=== PATIENT | male | born 2000 | race Caucasian/White ===

== ENCOUNTER 2024-12-15 11:14 | Outpatient (CLI) | payer BC, SELFPAY | END 2024-12-15 11:15 | disposition home or self-care (01) | PROVIDERS: Visit Provider Family Medicine | DX: Z01.818 Encounter for other preprocedural examination (principal); R00.0 Tachycardia, unspecified; R53.83 Other fatigue; S72.91XA Unspecified fracture of right femur, initial encounter for closed fracture; S72.92XA Unspecified fracture of left femur, initial encounter for closed fracture | CPT/HCPCS: 80048; 82306; 83970; 84439; 84443; 84480 ==

== ENCOUNTER 2025-03-07 08:27 | Inpatient (IN) | payer BC, SELFPAY ==
--- OUTSIDE RECORDS SUMMARY | 2025-02-03 05:22 | XMS_ITS | Encounter Summary ---
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 (after last reorder) on Sat02/04/25 at 1400, Until Discontinued methocarbamoL (ROBAXIN) tablet 500 mg 500 mg, oral, FOUR TIMES A DAY, First dose on Sat02/04/25 at 1200, Until Discontinued 1203 (Given - Provid er: Sarah Arango RN) tranexamic acid (CYKLOKAPRON) 710 mg in sodium chloride 0.9 % 100 mL IV infusion (COMPLETED) 710 mg (rounded from 712 mg = 10 mg/kg 71.2 kg), Intravenous, EVERY 3 HOURS (NS), 2 doses, First dose on Sat02/03/25 at 1115, Last dose on Sat02/03/25 at 1415, Administer over 10 Minutes 1110 (New Bag - Provider: María Elena Ruby APRN, LINE CAMERA OPERATOR)1403 (Bolus from Existing Bag - Provider: María Elena Ruby APRN, DOT)1415 (Due) Continuous Medication Order 02/02/2025 02/03/2025 02/04/2025 lactated Ringers (LR) IV infusion (CANCELED) at 100 mL/hr, Intravenous, CONTINUOUS, Starting on Sat02/03/25 at 1515, Until Sat02/03/25 at 1649, Phase 12 1515 (Rate Verify - Provider : Paulie Figueredo RN) PRN Medication Order 02/02/2025 02/03/2025 02/04/2025 bisacodyl (DULCOLAX) suppository 1 suppository 1 suppository, Rectal, DAILY NEEDED, Starting on Sat02/03/25 at 1656, Until Radha 02/04/25 at 1847, Post-Op, for constipation if patient unable to take oral laxative D50W IV syringe 25-50 mL 25-50 mL, Intravenous, NEEDED, Starting on Sat02/03/25 at 1755, Until Radha 02/04/25 at 1847, hypoglycemia fentaNYL (SUBLIMAZE) injection 25-50 mcg (CANCELED) 25-50 mcg, Intravenous, EVERY 5 MINUTES NEEDED, 8 doses, Starting on Sat02/03/25 at 1512, Until Sat02/03/25 at 1649, Phase 12, ACUTE SURGICAL PAIN 1516 (Given - Provider: Paulie Figueredo RN)1600 (Given - Provider: Paulie Figueredo RN) glucagon, human recombinant (Glucagen) injection (conc: 1 mg/mL) 1 mg 1 mg, IntraMUSCULAR, EVERY 15 MINUTES NEEDED, 2 doses, Starting on Sat02/03/25 at 1755, Until Radha 02/04/25 at 1847, for hypoglycemia HYDROmorphone (Dilaudid) syringe 0.2-0.4 mg 0.2-0.4 mg, Intravenous, EVERY 4 HOURS NEEDED, Starting on Sat02/03/25 at 1656, Until Radha 02/04/25 at 1847, Post-Op, Pain, when NOT taking PO hydrOXYzine pamoate (Vistaril) capsule 25 mg 25 mg, oral, EVERY 6 HOURS NEEDED, Starting on Radha 9/18/25 at 0906, Until Sat02/04/25 at 1847, Pain med adjunct, anxiety, sleep 1018 (Given - Provid er: Sarah Arango RN) Insulin pump - correctional Subcutaneous, NEEDED, Starting on Sat02/04/25 at 0924, Until Sat02/04/25 at 1847, as needed for correction lidocaine 1% injection (conc: 10 mg/mL) 0.1-0.3 mL (CANCELED) 0.1-0.3 mL, Intradermal, NEEDED, Starting on Sat02/03/25 at 0537, Until Sat02/03/25 at 1438, Pre-Op, Local Anesthesia, IV start or restart 0621 (Given - Provider: Dasha Scott RN) naloxone (NARCAN) injection 0.1 mg 0.1 mg, Intravenous, EVERY 1 MINUTE PRN, Starting on Sat02/03/25 at 1656, Until Sat02/04/25 at 1847, Post-Op, Opiate Reversal ondansetron (Zofran) injection 4 mg 4 mg, Intravenous, EVERY 8 HOURS NEEDED, Starting on Sat02/03/25 at 1656, Until Sat02/04/25 at 1847, Post-Op, nausea & vomiting, After transfer out of recovery oxyCODONE (immediate release) (ROXICODONE) tablet 2.5-5 mg (CANCELED) 2.5-5 mg, oral, EVERY 4 HOURS NEEDED, Starting on Sat02/03/25 at 1656, Until Sat02/04/25 at 1118, Post-Op, Pain, when taking PO 1720 (Given - Provider: Gian Lacy RN)2122 (Given - Provider: Gian Lacy RN) 0203 (Given - Provider: Layla Viveros RN)0758 (Given - Provider: Angela Tobias RN) oxyCODONE (immediate release) (ROXICODONE) tablet 5-10 mg 5-10 mg, oral, EVERY 4 HOURS NEEDED, Starting on Sat02/04/25 at 1118, Until Sat02/04/25 at 1847, Post-Op, Pain, when taking PO 1203 (Given - Provid er: Sarah Arango RN) senna-docusate (SENNA-S) tablet 1-2 tablet 1-2 tablet, oral, TWICE A DAY NEEDED, Starting on Sat02/03/25 at 1656, Until Radha 02/04/25 at 1847, Post-Op, constipation tobramycin (NEBCIN) powder (OR) (CANCELED) INTRA-PROCEDURE NEEDED, Starting on Sat02/03/25 at 1050, Until Sat02/03/25 at 1438, Intra-Op 1050 (Given - Provider: Jonathan Flannery MD - Comment: sprinkled into surgical site)1414 (Given - Provider: Jonathan Flannery MD - Comment: sprinkled into surgical site) vancomycin (VANCOCIN) powder (OR) (CANCELED) INTRA-PROCEDURE NEEDED, Starting on Sat02/03/25 at 1050, Until Sat02/03/25 at 1438, Intra-Op 1050 (Given - Provider: Jonathan Flannery MD - Comment: sprinkled into surgical site at 10:50 and second bottle at 1400) Linked Groups Order Group 1: acetaminophen (TYLENOL) tablet 1,000 mgJump to med 1,000 mg, oral, FOUR TIMES A DAY, First dose on Sat02/03/25 at 1800, Until Discontinued, Post-Op Or acetaminophen (TYLENOL) rectal suppository 650 mgJump to med 650 mg, Rectal, FOUR TIMES A DAY, First dose on Sat02/03/25 at 1800, Until Discontinued, Post-Op Group 2: POCT Glucose Meter (CANCELED) Routine, 4 TIMES DAILY - BEFORE MEALS & BEDTIME, First occurrence on Sat02/03/25 at 2200, Until Specified, Ensure Accucheck completed 4 times daily, even if patient misses meal(s). And POCT Glucose Meter (CANCELED) Routine, PRN, Starting on Sat02/03/25 at 1806, Until Specified, Two Hours After Coverage of Blood Glucose 350 mg / dL or Greater, 30 Minutes After Blood Glucose Less Than 80 mg / dL; Patient is Not Symptomatic and More Than 30 Minutes Until Next Meal and For Symptoms of Hypoglycemia. And insulin lispro (HumaLOG; Admelog) 100 unit/mL injection - pen 0-5 Units (CANCELED)Jump to med 0-5 Units, Subcutaneous, THREE TIMES A DAY WITH MEALS, First dose on Sat02/03/25 at 1815, Until Discontinued And insulin lispro (HumaLOG; Admelog) 100 unit/mL injection - pen 0-3 Units (CANCELED) 0-3 Units, Subcutaneous, AT BEDTIME, First dose on Sat02/03/25 at 2200, Until Discontinued documented in this encounter Care Teams Telephone Directory Deliverer Relationship Specialty Start Date End Date Foreign Salazar [address] [place] [address] PCP - General 01/29/25 documented as of this encounter
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
[2025-03-07] VITALS (33 sets, daily range): BP systolic 125–154; BP diastolic 86–114; PULSE 87–132; RESP 5–20; TEMP 36.2–37.7; O2SAT 95–100; BMI 19.4; BMI 17.1
--- OUTSIDE RECORDS SUMMARY | 2025-03-07 08:29 | XMS_ITS | Clinical Summary ---
Author Organization [facility] Address [address] [place] [address]. [place] [address] Care Team Providers Care Instrument Fitter Name Role Phone No Ref-Primary, Physician Primary Care Provider Allergies No known active allergies Medications INSULIN PUMP - OUTPATIENT Date Last Updated: 09/16/23 Tandem Type of Insulin: Humalog U-100 BASAL RATES and times: 6429-7645: 1.7 units/hour 8088-5738: 1.8 units/hour 8229-7323: 1.5 units/hour 6040-7694: 1.6 units/hour CARB RATIO (gram/unit) and times: 6040-6841: 8 7855-1009: 12 1890-5999: 8 2646-3130: 5.5 Corection Factor (Sensitivity) and times: 3524-8977: 25 7837-6110: 25 9937-4008: 25 1866-7322: 25 BLOOD GLUCOSE TARGET (mg/dL) and times: 7459-5058: 110 0330-5651: 110 4549-4931: 130 5663-0043: 110 Active Insulin Time: 3 hours CGM Sensor: Yes: Dexcom G7 Pump site change frequency: every 48 to 72 hours Active vitamin D2 (ERGOCALCIFEROL ) 21455 units (1250 mcg) capsule Take 50,000 Units by mouth every 30 days 3 Active HUMALOG 100 UNIT/ML injection Inject Subcutaneous daily For insulin pump 3 Active Continuous Glucose Sensor (DEXCOM G7 SENSOR) MISC every 10 days 4 Active Active Problems Problem Noted Date Diagnosed Date Suicidal ideation 01/18/2023 Depression, unspecified depression type 01/19/20 23 Substance use disorder 01/18/2023 Social History Tobacco Use Types Packs/Day Years Used Date Smoking Tobacco: Never Assessed Adolescent Education Answer Date Record ed Getting School Help Needed Not on file 03/05 Sex and Gender Information Value Date Recorded Sex Assigned at Not on file Legal Sex Male 4:22 AM [employer] Gender Identity Not on file Sexual Orientation Not on file Last Filed Vital Signs Vital Sign Reading Time Taken Comments Blood Pressure 136/74 09/17/2023 10:30 AM CDT Pulse 80 09/17/2023 10:30 AM CDT Temperature 36.9 C (98.4 F) 09/16/2023 1:32 PM CDT Respiratory Rate 18 09/17/2023 10:30 AM CDT Oxygen Saturation 95% 09/17/2023 10:30 AM CDT Inhaled Oxygen Concentration - - Weight 68.6 kg (151 lb 4.8 oz) 01/18/2023 2:22 A M CDT Height 190.5 cm (6' 3) 01/18/2023 2:22 AM CDT Body Mass Index 18.91 01/18/2023 2:22 AM CDT Plan of Treatment Health Maintenance Due Date Last Done Comments ADVANCE CARE PLANNING 2001 ANNUAL REVIEW OF HM ORDERS 2001 YEARLY PREVENTIVE VISIT 2004 HPV VACCINE (2 - Male 2-dose series) 02/07/2014 08/07/2013 HIV SCREENING 2016 MENINGITIS B VACCINE (1 of 2 - Standard) 2017 HEPATITIS C SCREENING 10/27/2019 PHQ-2 (once per calendar year) 2024 COVID-19 VACCINE ( - season) 2025 INFLUENZA VACCINE (#1) 2025 9, 03/13/2004, 04/16/2003 DTAP/TDAP/TD VACCINE (8 - Td or Tdap) 10/18/2031 10/17/2021, 08/07/2013, 10/22/2006, Additional history exists ZOSTER VACCINE (1 of 2) 10/27/2051 HEPATITIS B VACCINE Completed 10/28/2002, 02/23/2002, 2001 PNEUMOCOCCAL VACCINE: PEDIATRICS (0 to 5 YEARS) AND AT-RISK PATIENTS (6 to 49 YEARS) Aged Out 01/25/2003, 04/09/2002, 02/23/2002, Additional history exists No longer eligible based on patient's age to complete this topic MENINGITIS VACCINE Aged Out 08/07/2013 No longer eligible based on patient's age to complete this topic Insurance BCBS OUT OF STATE BCBS OUT OF STATE [facility] OUT OF STATE Care Teams Instrument Fitter Relationship Specialty Start Date End Date No Ref-Primary, Physician PCP - General 01/18/23
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
--- OUTSIDE RECORDS SUMMARY | 2025-03-07 08:30 | XMS_ITS | Encounter Summary ---
Author Organization [facility] Address [address] [place] [address] Care Team Providers Care Guest Service Manager Name Role Phone Foreign Salazar Primary Care Provider [phone] Encounter Details Date Type Department Care Team (Latest Contact Info) Description 02/03/2025 Travel Social History Tobacco Use Types Packs/Day Years [...] any time in the past 12 m [facility], were you homeless or living in a snf (including now)? Patient unable to answer 11/12/2024 [...] any time in the past 12 m [facility], were you homeless or living in a snf (including now)? No 02/03/2025 [facility] Utilities Answer Date Recorded In the past 12 months has th e electric, gas, oil, or water company threatened to shut off services in your home? No 02/03/2025 Sex and Gender Information Value Date Recorded Sex Assigned at Not on file Legal Sex Male 4:41 PM CDT Gender Identity Not on file Sexual Orientation Not on file documented as of this encounter Plan of Treatment Not on file documented as of this encounter Visit Diagnoses Not on filedocumented in this encounter Care Teams Guest Service Manager Relationship Specialty Start Date End Date Foreign Salazar: [phone] [address] [place] [address] PCP - General 01/29/25 documented as of this encounter
--- OUTSIDE RECORDS SUMMARY | 2025-03-07 08:30 | XMS_ITS | Encounter Summary ---
Author Organization [facility] Address [address] [place] [id number] Care Team Providers Care Bulk Clerk Name Role Phone Foreign Salazar Primary Care Provider [phone] Encounter Details Date Type Department Care Team (Latest Contact Info) Description 02/01/2025 Travel Social History Tobacco Use Types Packs/Day Years Used Date Smoking Tobacco: Every Day Cigarettes E - Cigarettes Smokeless Tobacco: Never Alcohol Use Standard Drinks/Week Comments Yes 0 (1 standard drink = 0.6 oz pur e alcohol) occasionally drinks [facility] Utilities Answer Date Recorded In the past 12 months has e [employer], gas, oil, or water [employer] threatened to shut off services in your home? Patient unable to answer 11/12/2024 Humiliation, Afraid, Rape, a nd Kick questionnaire Answer Date Recorded Within the last year, have y ou been afraid of your partner or ex-partner? Patient unable to answer 11/12/2024 Within the last year, have y ou been humiliated or emotionally abused in other ways by your partner or ex-partner? Patient unable to answer 11/12/2024 Within the last year, have y ou been kicked, hit, slapped, or otherwise physically hurt by your partner or ex-partner? Patient unable to answer 11/12/2024 Within the last year, have y ou been raped or forced to have any kind of sexual activity by your partner or ex-partner? Patient unable to answer 11/12/2024 Hunger Vital Sign Answer Date Recorded Within the past 12 months, y ou worried that your food would run out before you got the money to buy more. Patient unable to answer 11/12/2024 Within the past 12 months, t he food you bought just didn't last and you didn't have money to get more. Patient unable to answer 11/12/2024 PRAPARE - Transportation Answer Date Re corded In the past 12 months, has l ack of transportation kept you from medical appointments or from getting medications? Patient unable to answer 11/12/2024 In the past 12 months, has l ack of transportation kept you from meetings, work, or from getting things needed for daily living? Patient unable to answer 11/12/2024 Housing Stability Vital Sign Answer Yobany e Recorded In the last 12 months, was t here a time when you were not able to pay the mortgage or rent on time? Patient unable to answer 11/12/2024 Number of Times Moved in the Last Year Not on fi le 11/12/2024 At any time in the past 12 m [facility], were you homeless or living in a retirement (including now)? Patient unable to answer 11/12/2024 Sex and Gender Information Value Date Recorded Sex Assigned at Not on file Legal Sex Male 4:41 PM CDT Gender Identity Not on file Sexual Orientation Not on file documented as of this encounter Plan of Treatment Not on file documented as of this encounter Visit Diagnoses Not on filedocumented in this encounter Care Teams Bulk Clerk Relationship Specialty Start Date End Date Foreign Salazar [address] [place] [address] PCP - General 01/29/25 documented as of this encounter
--- NOTE | 2025-03-07 09:30 | CRLHL7_ITS ---
For Patients: As a result of the Century Cures Act, medical imaging exams and procedure reports are released immediately into your electronic medical record. You may view this report before your referring provider. If you have questions, please contact your health care provider. INDICATION: Vomiting COMPARISON: None. TECHNIQUE: 1 view chest radiograph. FINDINGS: Devices: Lung volumes are good. No focal or diffuse opacities. No pulmonary edema. No pleural effusion. No pneumothorax. No pneumomediastinum. Heart size is normal. Bones: No acute findings. IMPRESSION: Normal chest radiograph. Dictated by Anai Patel MD @ 03/07/2025 10:04:01 AM (Electronically Signed)
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
[2025-03-07 09:41] LABS: Lactate* 3.0 mmol/L (0.5-1.9)
[2025-03-07 09:43] LABS: Hematocrit* 50.6 % (37.0-53.0); Hemoglobin* 17.9 gm/dL (13.5-17.5); Immature Granulocytes Pct Auto 0.3 %; Mean Corpuscular HGB Conc 35 gm/dL (32-36); Mean Corpuscular Hemoglobin 29 pg (26-34); Mean Corpuscular Volume 82 fL (80-100); RDW Coefficient of Variation % 12.6 % (11.5-15.5); Red Blood Count* 6.16 m/uL (4.30-5.90); White Blood Count* 24.36 K/uL (4.50-11.00)
[2025-03-07 09:44] LABS: Immature Granulocytes Abs Auto 0.10 K/uL (0.00-0.30); Lymphocytes Absolute Auto 1.30 K/uL (0.90-2.90); Slide Review Reflex Yes
[2025-03-07 09:56] LABS: Chloride* 81 mmol/L (96-114)
[2025-03-07 09:57] LABS: Albumin* 5.8 g/dL (3.3-5.0); Potassium* 3.4 mmol/L (3.6-5.1); Sodium* 132 mmol/L (135-149)
[2025-03-07 09:59] LABS: Blood Urea Nitrogen* 50 mg/dL (5-24); Creatinine* 1.9 mg/dL (0.5-1.5); Est. Creatinine Clearance* 60.13; Estimated Glomerular Filt Rate 50 ml/min
[2025-03-07 10:00] LABS: Alanine Aminotransferase* 18 U/L (4-50); Alkaline Phosphatase* 270 U/L (40-150); Anion Gap 32 mEq/L (7-15); Aspartate Amino Transferase* 31 U/L (12-35); Bilirubin Direct* 0.8 mg/dL (0.0-0.5); Bilirubin Total* 1.6 mg/dL (0.1-1.5); Calcium* 10.1 mg/dL (8.4-10.6); Carbon Dioxide* 19 mmol/L (20-32); Glucose* 331 mg/dL (60-115); Total Protein* 10.7 g/dL (6.0-8.3)
[2025-03-07 10:02] LABS: Ethanol* < 0.01 % (0.01-0.03)
[2025-03-07] MEDS: MEROPENEM 1 GM in 0.9 % SODIUM CHLORIDE Mini-bag 100 ML IVPB ×2 (10:14→18:35)
[2025-03-07] MEDS: PANTOPRAZOLE SODIUM 40 MG INJ IVP ×2 (10:14→21:58)
[2025-03-07 10:15] LABS: NT Pro B Type NatriureticPept* 212 pg/mL (See Note)
[2025-03-07 10:21] LABS: Slide Review Acceptable Review (Acceptable)
[2025-03-07 10:46] LABS: Procalcitonin* 0.78 ng/mL (<0.50)
--- NOTE | 2025-03-07 10:51 | CRLHL7_ITS ---
For Patients: As a result of the Cures Act, medical imaging exams and procedure reports are released immediately into your electronic medical record. You may view this report before your referring provider. If you have questions, please contact your health care provider. INDICATION: Pulmonary embolism suspected, sepsis. TECHNIQUE: CT chest PE was acquired with 95 cc Isovue 370 IV contrast. COMPARISON: None. FINDINGS: Heart and vasculature: Contrast opacification of the pulmonary arterial tree is adequate. No sign of pulmonary embolism. Heart size is normal. Thoracic aorta and pulmonary artery are normal in caliber. Lungs and pleura: No focal consolidation. No pleural effusions, pleural thickening, or pneumothorax. Lymph nodes/mediastinum: No mediastinal, hilar, or axillary adenopathy. Chest wall: No masses. Upper abdomen: Refer to same-day CT abdomen pelvis with contrast. Bones: No acute osseous abnormality. Subacute to chronic appearing rib fractures on of the left 8th through 10th ribs. IMPRESSION: No pulmonary embolus. Chronic appearing fractures of the left 8th through 10th ribs. Please note that all CT scans at this facility use dose modulation, iterative reconstruction, and/or weight-based dosing when appropriate to reduce radiation dose to as low as reasonably achievable. Dictated by Zain Bello MD @ 03/07/2025 12:46:50 PM (Electronically Signed)
--- NOTE | 2025-03-07 10:51 | CRLHL7_ITS ---
For Patients: As a result of the Century Cures Act, medical imaging exams and procedure reports are released immediately into your electronic medical record. You may view this report before your referring provider. If you have questions, please contact your health care provider. INDICATION: Sepsis. TECHNIQUE: Axial intravenously infused CT cuts were performed from above diaphragm to the ischial tuberosities with the infusion of 95 mL of Isovue 370. COMPARISON: None. FINDINGS: The lower most visualized portion of the esophagus appears somewhat thickened raising the possibility of esophagitis. A few of the upper abdominal images are degraded by motion artifact. The liver, spleen, pancreas, adrenals and kidneys appear normal. There is no free intraperitoneal air or fluid. The colon small bowel appear normal. The appendix is not inflamed. There are no enlarged retroperitoneal or mesenteric lymph nodes. The urinary bladder is very full with the dome of the bladder extending to the level of the L5 vertebra. The prostate gland seminal vesicles appear normal. There is no iliac or inguinal lymphadenopathy. There are incompletely visualized intramedullary rods within both proximal femora. There are no lytic or sclerotic skeletal lesions. There are no nodules or masses the lung bases. IMPRESSION: 1. The lower end of the esophagus appears thickened raising possibility esophagitis. 2. The urinary bladder is very full with the dome of the urinary bladder extending to the level of the L5 vertebra. 3. Hardware within both proximal femora. Please note that all CT scans at this facility use dose modulation, iterative reconstruction, and/or weight-based dosing when appropriate to reduce radiation dose to as low as reasonably achievable. Dictated by Hao Watson MD @ 03/07/2025 12:17:54 PM (Electronically Signed)
[2025-03-07 11:37] LABS: Lactate* 1.8 mmol/L (0.5-1.9)
[2025-03-07] MEDS: 0.9 % SODIUM CHLORIDE 500 ML 500 ML IV (12:52)
[2025-03-07 12:53] LABS: Appearance Urine Clear (Clear)
[2025-03-07] MEDS: ONDANSETRON 2 MG/ML inj 4 MG IVP ×2 (13:00→16:59)
[2025-03-07 13:03] LABS: Cannabinoid Screen Urine POSITIVE (Negative); Methamphetamines Screen Urine Negative (Negative); Tricyclic Antidepressant Urine Negative (Negative)
[2025-03-07 13:05] LABS: Other Sediment Urine HYALINE CASTS
[2025-03-07 13:28] LABS: PCR FLU A Negative PCR FLU A (Negative); PCR FLU B Negative PCR FLU B (Negative); PCR RSV Negative PCR RSV (Negative); SARS PCR* Negative SARS-CoV-2 (Negative)
[2025-03-07] MEDS: LACTATED RINGERS 1000 ML 1,000 ML IV (15:17)
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
[2025-03-07] MEDS: 5 % DEX/0.9 SOD CHL+KCL 20 mEq 1,000 ML 500 ML IV (16:55)
[2025-03-07] MEDS: GABAPENTIN 300 MG CAPSULE PO (16:56)
[2025-03-07] MEDS: [UNRECOGNIZED DRUG - REMARK] SUBCUT ×3 (17:17→22:05)
[2025-03-07 18:10] LABS: Hematocrit* 39.9 % (37.0-53.0); Hemoglobin* 13.9 gm/dL (13.5-17.5); Immature Granulocytes Pct Auto 1.4 %; Mean Corpuscular HGB Conc 35 gm/dL (32-36); Mean Corpuscular Hemoglobin 29 pg (26-34); Mean Corpuscular Volume 83 fL (80-100); RDW Coefficient of Variation % 12.8 % (11.5-15.5); Red Blood Count* 4.81 m/uL (4.30-5.90); White Blood Count* 21.28 K/uL (4.50-11.00)
[2025-03-07 18:14] LABS: Chloride* 94 mmol/L (96-114); Sodium* 131 mmol/L (135-149)
[2025-03-07 18:15] LABS: Potassium* 3.3 mmol/L (3.6-5.1)
[2025-03-07 18:15] LABS: Lactate* 1.3 mmol/L (0.5-1.9)
[2025-03-07 18:17] LABS: Anion Gap 15 mEq/L (7-15); Blood Urea Nitrogen* 28 mg/dL (5-24); Carbon Dioxide* 22 mmol/L (20-32); Creatinine* 0.9 mg/dL (0.5-1.5); Est. Creatinine Clearance* 112.28; Estimated Glomerular Filt Rate 123 ml/min
[2025-03-07 18:18] LABS: Calcium* 8.5 mg/dL (8.4-10.6); Glucose* 311 mg/dL (60-115)
[2025-03-07 18:30] LABS: Immature Granulocytes Abs Auto 0.30 K/uL (0.00-0.30); Lymphocytes Absolute Auto 1.00 K/uL (0.90-2.90); Slide Review Reflex No
[2025-03-07 19:19] LABS: Strep A DNA Probe* NOT DETECTED (Not Detectd)
--- NOTE | 2025-03-07 19:47 | PC.NURSE ---
Admission-- Pleasant, alert and oriented but very drowsy patient was admitted to Med-Surg from ED via cart. Flat affect. VSS, though mildly hypertensive and tachycardic with HR as high as 130s. Highest temp this shift 99.4 temporal. Pt is flushed and feels warm to touch. SPO2 maintained >94% on RA. He c/o sore pain in his throat and was given ice for comfort. Throat culture pending. LS CTA. Pt nauseas and had approximately 200ml of bilious, brown emesis this shift and hiccups and spits almost continuously. Pt was given Zofran PRN with temporary improvement noted. Pt was able to sip small amounts of ice, water and diet germán ammy. BG 297 per his glucose monitor and pt was given 6 units insulin from his insulin pump per MD order. Scarring noted on pt's left hip, right foot and scattered across other extremities. Parents at bedside this evening and appear loving and supportive. Telemetry shows Sinus tachycardia. Report to KARIN Arnett.
[2025-03-07] MEDS: 5 % DEX/0.9 SOD CHL+KCL 20 mEq 1,000 ML 125 ML IV (20:01)
[2025-03-07] MEDS: SODIUM CHLORIDE 0.9 % (FLUSH) 10 ML SYRINGE 5 ML IVF (20:01)
[2025-03-07] MEDS: PROCHLORPERAZINE 5 MG/ML VIAL IV (20:01)
[2025-03-07 20:51] LABS: Mono Screen* Negative (Negative)
[2025-03-07 21:11] LABS: Glucose* 341 mg/dL (60-115)
[2025-03-07] MEDS: ASPIRIN 81 MG TAB.CHEW PO (21:58)
[2025-03-07] MEDS: POTASSIUM BICARB 25 MEQ EFFERVESCENT TAB PO (22:10)
[2025-03-08] VITALS (10 sets, daily range): BP systolic 132–145; BP diastolic 84–92; PULSE 83–127; RESP 18–20; TEMP 36.3–37.7; O2SAT 96–99
[2025-03-08] MEDS: POTASSIUM BICARB 25 MEQ EFFERVESCENT TAB PO (00:12)
[2025-03-08] MEDS: ACETAMINOPHEN 325 MG TABLET 650 MG PO (00:38)
[2025-03-08] MEDS: [UNRECOGNIZED DRUG - REMARK] SUBCUT ×9 (00:50→21:48)
[2025-03-08] MEDS: MEROPENEM 1 GM in 0.9 % SODIUM CHLORIDE Mini-bag 100 ML IVPB ×3 (02:01→18:08)
[2025-03-08] MEDS: 5 % DEX/0.9 SOD CHL+KCL 20 mEq 1,000 ML 125 ML IV (04:57)
[2025-03-08 05:57] LABS: Lactate* 0.9 mmol/L (0.5-1.9)
[2025-03-08 06:02] LABS: Hematocrit* 37.6 % (37.0-53.0); Hemoglobin* 12.8 gm/dL (13.5-17.5); Immature Granulocytes Pct Auto 0.4 %; Mean Corpuscular HGB Conc 34 gm/dL (32-36); Mean Corpuscular Hemoglobin 29 pg (26-34); Mean Corpuscular Volume 86 fL (80-100); RDW Coefficient of Variation % 13.0 % (11.5-15.5); Red Blood Count* 4.38 m/uL (4.30-5.90); White Blood Count* 13.38 K/uL (4.50-11.00)
[2025-03-08 06:08] LABS: Immature Granulocytes Abs Auto 0.10 K/uL (0.00-0.30); Lymphocytes Absolute Auto 1.20 K/uL (0.90-2.90); Slide Review Reflex No
[2025-03-08 06:20] LABS: Albumin* 3.6 g/dL (3.3-5.0); Chloride* 98 mmol/L (96-114); Potassium* 3.6 mmol/L (3.6-5.1); Sodium* 134 mmol/L (135-149)
[2025-03-08 06:23] LABS: Alanine Aminotransferase* 10 U/L (4-50); Alkaline Phosphatase* 198 U/L (40-150); Anion Gap 11 mEq/L (7-15); Aspartate Amino Transferase* 13 U/L (12-35); Bilirubin Direct* 0.5 mg/dL (0.0-0.5); Bilirubin Total* 1.4 mg/dL (0.1-1.5); Blood Urea Nitrogen* 15 mg/dL (5-24); Calcium* 8.6 mg/dL (8.4-10.6); Carbon Dioxide* 25 mmol/L (20-32); Creatinine* 0.7 mg/dL (0.5-1.5); Est. Creatinine Clearance* 0.00; Estimated Glomerular Filt Rate 133 ml/min; Glucose* 311 mg/dL (60-115); Total Protein* 6.0 g/dL (6.0-8.3)
--- NOTE | 2025-03-08 06:38 | PC.NURSE ---
Shift Note: Pt very nauseous with emesis x2 despite zofran IVP. Pt was given a dose of Compazine and this has been effective. MD discontinued both antiemetics d/t potential for prolonged QT intervals. Nausea should be treated for nausea with PRN haldol. Persistent tachycardia has resolved, pt's HR has been in the 80's for several hours. Mildly elevated temps, highest reading was 100. Pt was given PRN Tylenol for moderate generalized discomfort and throat pain and was not able to keep it down. He was initially quite somnolent and needed tactile stimulation to wake and respond. He has been oriented x3, and alertness has improved. BG was over 400. Serum value drawn and 8 units bolused from pt's pump per sliding scale order. Recheck's Q2H until 0200 per MD. Pt was given 2 additional boluses of 6 units each. Pt's last BG= 271.
[2025-03-08] MEDS: SODIUM CHLORIDE 0.9 % (FLUSH) 10 ML SYRINGE 5 ML IVF ×2 (08:42→21:25)
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
[2025-03-08] MEDS: MAGNESIUM SULF 1 G/100 ML 1 GM/100 ML PIGGYBACK IVPB (09:37)
[2025-03-08] MEDS: 0.9 % SODIUM CH + KCL 20 mEq/L 1,000 ML 125 ML IV (09:37)
[2025-03-08] MEDS: PANTOPRAZOLE SODIUM 40 MG INJ IVP (09:45)
[2025-03-08] MEDS: ASPIRIN 81 MG TAB.CHEW PO ×2 (12:03→21:25)
[2025-03-08 15:26] LABS: Chloride* 98 mmol/L (96-114); Potassium* 4.6 mmol/L (3.6-5.1); Sodium* 132 mmol/L (135-149)
[2025-03-08 15:29] LABS: Anion Gap 18 mEq/L (7-15); Blood Urea Nitrogen* 13 mg/dL (5-24); Calcium* 8.6 mg/dL (8.4-10.6); Carbon Dioxide* 16 mmol/L (20-32); Creatinine* 0.7 mg/dL (0.5-1.5); Est. Creatinine Clearance* 0.00; Estimated Glomerular Filt Rate 133 ml/min
[2025-03-08 15:37] LABS: Glucose* 365 mg/dL (60-115)
[2025-03-08] MEDS: 5 % DEXTROSE IN LAC RINGER'S 1,000 ML 125 ML IV (16:30)
--- NOTE | 2025-03-08 19:31 | PC.NURSE ---
pt pleasant and cooperative with cares. pt reports no pain but reports nausea at beginning of shift, prn medication given per jul. pt had no appetite throughout shift. Oral fluids tolerated. pt remained in bed and slept for most of shift. Rig Mechanic suggest pt dangle feet at edge of bed or sit up, pt refused. Pt sleeping in bed, parents at bedside. pt has no concerns at this time
[2025-03-08 21:34] LABS: Chloride* 97 mmol/L (96-114); Sodium* 133 mmol/L (135-149)
[2025-03-08 21:35] LABS: Potassium* 3.8 mmol/L (3.6-5.1)
[2025-03-08 21:37] LABS: Anion Gap 17 mEq/L (7-15); Blood Urea Nitrogen* 12 mg/dL (5-24); Carbon Dioxide* 19 mmol/L (20-32); Creatinine* 0.7 mg/dL (0.5-1.5); Est. Creatinine Clearance* 0.00; Estimated Glomerular Filt Rate 133 ml/min
[2025-03-08 21:38] LABS: Calcium* 8.8 mg/dL (8.4-10.6); Glucose* 323 mg/dL (60-115)
[2025-03-08] MEDS: INSULIN INF 100 UNIT/100 ML 100 UNIT/100 ML BAG IVPB (22:52)
[2025-03-09] VITALS (16 sets, daily range): BP systolic 137–150; BP diastolic 83–108; PULSE 63–109; RESP 14–18; TEMP 36.6–37.4; O2SAT 92–100
[2025-03-09] MEDS: 5 % DEXTROSE IN LAC RINGER'S 1,000 ML 125 ML IV (01:00)
[2025-03-09] MEDS: MEROPENEM 1 GM in 0.9 % SODIUM CHLORIDE Mini-bag 100 ML IVPB ×3 (02:02→17:22)
[2025-03-09] MEDS: POTASSIUM CHLORIDE 10 MEQ/100 ML PIGGYBACK 100 MEQ IVPB (03:03)
[2025-03-09] MEDS: MAGNESIUM SULF 1 G/100 ML 1 GM/100 ML PIGGYBACK IVPB (04:02)
--- NOTE | 2025-03-09 06:22 | PC.NURSE ---
Shift Note 19-: Pt continues to need large bolus doses from his pump with minimal improvement in accuchecks. BG has remained in the 300's. ordered insulin drip to initiated at 2300. Pt's BG has improved and is currently 95. Insulin drip was stopped at 0615. He has been more alert, cooperative with cares. Denies pain but states his nausea is still present but much less intense. He verbalizes its worse when he sits up. Alvarenga patent and draining. Urine output has been more than sufficient. HR intermittently increasing to 113-124 BPM, tele= a-flutter and HR would intermittently come back down to normal rates, tele reflecting NSR. Pt asymptomatic and denies CP, pressure, or palpitations. Overnight [facility] hospitalist updated and orders obtained for IV potassium and magnesium.
[2025-03-09 06:45] LABS: Hematocrit* 38.9 % (37.0-53.0); Hemoglobin* 13.3 gm/dL (13.5-17.5); Immature Granulocytes Abs Auto 0.02 K/uL (0.00-0.30); Immature Granulocytes Pct Auto 0.2 %; Lymphocytes Absolute Auto 2.54 K/uL (0.90-2.90); Mean Corpuscular HGB Conc 34 gm/dL (32-36); Mean Corpuscular Hemoglobin 29 pg (26-34); Mean Corpuscular Volume 86 fL (80-100); RDW Coefficient of Variation % 12.8 % (11.5-15.5); Red Blood Count* 4.53 m/uL (4.30-5.90); White Blood Count* 10.16 K/uL (4.50-11.00)
[2025-03-09 06:46] LABS: Slide Review Reflex No
[2025-03-09 06:54] LABS: Albumin* 3.6 g/dL (3.3-5.0); Chloride* 99 mmol/L (96-114); Potassium* 3.2 mmol/L (3.6-5.1); Sodium* 138 mmol/L (135-149)
[2025-03-09 06:56] LABS: Blood Urea Nitrogen* 7 mg/dL (5-24); Creatinine* 0.6 mg/dL (0.5-1.5); Est. Creatinine Clearance* 0.00; Estimated Glomerular Filt Rate 139 ml/min
[2025-03-09 06:57] LABS: Alanine Aminotransferase* 12 U/L (4-50); Alkaline Phosphatase* 196 U/L (40-150); Anion Gap 8 mEq/L (7-15); Aspartate Amino Transferase* 13 U/L (12-35); Bilirubin Total* 0.9 mg/dL (0.1-1.5); Calcium* 9.0 mg/dL (8.4-10.6); Carbon Dioxide* 31 mmol/L (20-32); Glucose* 93 mg/dL (60-115); Total Protein* 6.3 g/dL (6.0-8.3)
[2025-03-09] MEDS: 5 % DEX/0.45 SOD CHL+KCL20 mEq 1,000 ML 125 ML IV ×2 (08:25→17:22)
[2025-03-09] MEDS: ENOXAPARIN 40 MG/0.4 ML INJ SUBCUT (09:23)
[2025-03-09] MEDS: PANTOPRAZOLE SODIUM 40 MG INJ IVP (09:25)
[2025-03-09] MEDS: ASPIRIN 81 MG TAB.CHEW PO ×2 (09:25→22:07)
[2025-03-09] MEDS: SODIUM CHLORIDE 0.9 % (FLUSH) 10 ML SYRINGE 5 ML IVF ×2 (09:25→22:08)
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
[2025-03-09 10:53] LABS: HCO3 VBG 28 mmol/L (21-28); PCO2 VBG 36 mmHG (40-50); PO2 VBG 62.7 mmHG (25-47); pH VBG 7.495 (7.32-7.43)
[2025-03-09 11:10] LABS: Chloride* 95 mmol/L (96-114); Sodium* 133 mmol/L (135-149)
[2025-03-09 11:11] LABS: Potassium* 3.4 mmol/L (3.6-5.1)
[2025-03-09 11:13] LABS: Anion Gap 12 mEq/L (7-15); Blood Urea Nitrogen* 7 mg/dL (5-24); Carbon Dioxide* 26 mmol/L (20-32); Creatinine* 0.6 mg/dL (0.5-1.5); Est. Creatinine Clearance* 0.00; Estimated Glomerular Filt Rate 139 ml/min
[2025-03-09 11:14] LABS: Calcium* 8.4 mg/dL (8.4-10.6); Glucose* 165 mg/dL (60-115)
--- NOTE | 2025-03-09 14:03 | REH.PT ---
Patient resting comfortably, nsg reports requests PT cheryl in AM 03/10/25
--- NOTE | 2025-03-09 16:51 | PC.NURSE ---
Shift Summary: Patient pleasant and cooperative. Encouraged to turn and reposition in bed, able to do per self, pillow between legs. Alvarenga patent with clear light yellow urine. Continues with insulin drip, q1h BG checks. Vitals stable. c/o discomfort in throat with liquids, poor appetite, tolerating clears. x2 emesis following ensure. Offered to assist patient to recliner to change sheets but patient refused. Family at bedside throughout the day.
[2025-03-09 17:54] LABS: HCO3 VBG 33 mmol/L (21-28); PCO2 VBG 41 mmHG (40-50); PO2 VBG 64.3 mmHG (25-47); pH VBG 7.520 (7.32-7.43)
[2025-03-09 18:07] LABS: Chloride* 94 mmol/L (96-114); Potassium* 3.2 mmol/L (3.6-5.1); Sodium* 135 mmol/L (135-149)
[2025-03-09 18:10] LABS: Anion Gap 8 mEq/L (7-15); Blood Urea Nitrogen* 3 mg/dL (5-24); Carbon Dioxide* 33 mmol/L (20-32); Creatinine* 0.5 mg/dL (0.5-1.5); Est. Creatinine Clearance* 202.11; Estimated Glomerular Filt Rate 147 ml/min
[2025-03-09 18:11] LABS: Calcium* 8.5 mg/dL (8.4-10.6); Glucose* 91 mg/dL (60-115)
[2025-03-09] MEDS: POTASSIUM CHLORIDE 10 MEQ CAPSULE ER 50 MEQ PO (22:00)
[2025-03-09] MEDS: INSULIN INF 100 UNIT/100 ML 100 UNIT/100 ML BAG IVPB (22:02)
[2025-03-10] VITALS (8 sets, daily range): BP systolic 135–154; BP diastolic 88–100; PULSE 68–96; RESP 16–18; TEMP 36.6–37.4; O2SAT 94–98; BMI 17.1
[2025-03-10] MEDS: MEROPENEM 1 GM in 0.9 % SODIUM CHLORIDE Mini-bag 100 ML IVPB (01:16)
[2025-03-10] MEDS: 5 % DEX/0.45 SOD CHL+KCL20 mEq 1,000 ML 125 ML IV ×2 (01:16→11:12)
[2025-03-10 06:26] LABS: HCO3 VBG 31 mmol/L (21-28); PCO2 VBG 41 mmHG (40-50); PO2 VBG 79.5 mmHG (25-47); pH VBG 7.490 (7.32-7.43)
[2025-03-10 06:29] LABS: Hematocrit* 38.2 % (37.0-53.0); Hemoglobin* 13.1 gm/dL (13.5-17.5); Immature Granulocytes Abs Auto 0.01 K/uL (0.00-0.30); Immature Granulocytes Pct Auto 0.1 %; Lymphocytes Absolute Auto 2.38 K/uL (0.90-2.90); Mean Corpuscular HGB Conc 34 gm/dL (32-36); Mean Corpuscular Hemoglobin 29 pg (26-34); Mean Corpuscular Volume 86 fL (80-100); RDW Coefficient of Variation % 12.1 % (11.5-15.5); Red Blood Count* 4.47 m/uL (4.30-5.90); White Blood Count* 7.77 K/uL (4.50-11.00)
[2025-03-10 06:34] LABS: Slide Review Reflex No
[2025-03-10 06:47] LABS: Chloride* 95 mmol/L (96-114)
[2025-03-10 06:48] LABS: Albumin* 3.6 g/dL (3.3-5.0); Potassium* 3.7 mmol/L (3.6-5.1); Sodium* 134 mmol/L (135-149)
[2025-03-10 06:50] LABS: Anion Gap 7 mEq/L (7-15); Blood Urea Nitrogen* 4 mg/dL (5-24); Carbon Dioxide* 32 mmol/L (20-32); Creatinine* 0.5 mg/dL (0.5-1.5); Est. Creatinine Clearance* 201.96; Estimated Glomerular Filt Rate 147 ml/min
[2025-03-10 06:51] LABS: Alanine Aminotransferase* 13 U/L (4-50); Alkaline Phosphatase* 203 U/L (40-150); Aspartate Amino Transferase* 16 U/L (12-35); Bilirubin Total* 0.9 mg/dL (0.1-1.5); Calcium* 8.7 mg/dL (8.4-10.6); Glucose* 188 mg/dL (60-115); Total Protein* 6.2 g/dL (6.0-8.3)
--- NOTE | 2025-03-10 06:52 | PC.NURSE ---
[id number]: Insulin drip ranging from 2-4 units throughout shift. Antiemetic x2 for N/V. Emesis x2. Encouraged ambulation in room or even moving from bed to chair, patient refused. Educated on the risks and benefits of movement. Offered shower but patient declined maybe in the morning. Unable to take all scheduled medications d/t N/V. MD aware. Encouraged PO intake. Alvarenga patent and draining large amounts of urine. Patient more interactive with staff this shift. Beckie (mother) at bedside during noc and supportive.
--- NOTE | 2025-03-10 08:12 | CRLHL7_ITS ---
For Patients: As a result of the Century Cures Act, medical imaging exams and procedure reports are released immediately into your electronic medical record. You may view this report before your referring provider. If you have questions, please contact your health care provider. INDICATION: Persistent nausea and vomiting TECHNIQUE: CT abdomen and pelvis acquired with 67 cc Isovue 370 IV contrast. COMPARISON: CT abdomen pelvis 03/07/2025. FINDINGS: Lower chest: Not circumferential thickening of the distal esophagus. Liver: Unremarkable. Gallbladder and bile ducts: Unremarkable. No stones or inflammation. No biliary dilatation. Pancreas: Unremarkable. Spleen: Unremarkable. Normal in size. No masses. Adrenal glands: Unremarkable. No nodules. Kidneys: Unremarkable. No suspicious masses, stones, or hydronephrosis. GI tract: No obstruction. No evidence of significant bowel inflammation. Normal appendix. Vasculature: Abdominal aorta is normal in caliber. Mesenteric arteries are patent. Lymph nodes: No lymphadenopathy. Peritoneum/Abdominal Wall: Unremarkable. Pelvis: Alvarenga catheter in the bladder. Bones: Partially visualized femoral hardware. IMPRESSION: Circumferential thickening of the esophagus is concerning for esophagitis and may be related to recent episodes of vomiting. Please note that all CT scans at this facility use dose modulation, iterative reconstruction, and/or weight-based dosing when appropriate to reduce radiation dose to as low as reasonably achievable. Dictated by Anna Savage MD @ 03/10/2025 9:34:25 AM (Electronically Signed)
[2025-03-10] MEDS: ONDANSETRON ODT 4 MG TAB PO (08:25)
[2025-03-10] MEDS: PANTOPRAZOLE SODIUM 40 MG INJ IVP (08:25)
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
[2025-03-10] MEDS: ASPIRIN 81 MG TAB.CHEW PO ×2 (10:23→20:37)
[2025-03-10] MEDS: ENOXAPARIN 40 MG/0.4 ML INJ SUBCUT (10:23)
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
--- NOTE | 2025-03-10 14:24 | W.PC.NUTR.NO ---
Nutrition Progress Note Progress Note Progress Note: Nutrition Follow-up Note: RDN visited with patient again this afternoon following discuss had this morning related to starting PPN. Nursing reports his diet advanced to Full Liquids, advance as tolerated. RDN spoke to patient and patient's mother. Encourage patient to order full liquid from menu. Provided patient a menu and he reports he was going to order something this afternoon. Encouraged patient to go slow and sip liquids. If tolerated, encouraged patient to order solids per diet order. Will continue to monitor and follow-up prn.
--- NOTE | 2025-03-10 19:39 | PC.NURSE ---
The patient is flat and cooperative with cares. VS noted to be slightly hypertensive. Tele, NSR. No reports of pain, reports slight burning in his chest in the AM, and constant mild-moderate nausea throughout the day. PRN zofran was given this AM, the patient was able to tolerate a whole powerade with no emesis. This afternoon, PRN zofran was offered and encouraged but the patient declined.... 1830 the patient had a large 300cc emesis. Insulin gtt was titrated per protocol throughout the day. This evening it was stopped per protocol and was notified, pt is now back on his own insulin pump and to manage accordingly. Alvarenga was removed this afternoon, has not voided. Call light within reach, slept intermittently throughout the day and was up with PT one time today. Declined a shower today. Jeaneth FRAZIER BSN
[2025-03-10] MEDS: SODIUM CHLORIDE 0.9 % (FLUSH) 10 ML SYRINGE 5 ML IVF (19:42)
[2025-03-10] MEDS: 5 % DEX/0.45 SOD CHL+KCL20 mEq 1,000 ML 75 ML IV (19:43)
[2025-03-11 02:40] VITALS: BP 141/98; PULSE 79; RESP 16; TEMP 37.3; O2SAT 97
[2025-03-11 06:34] VITALS: BMI 17.4
--- NOTE | 2025-03-11 06:34 | PC.NURSE ---
[id number] Pt in bed majority of shift, up to BR approx 0540, ambulated with walker, SBA, NWB to LLE, tolerated activity fair, HR up to 185 BPM, see tele strip, pt felt light headed and dizzy-recovered once he laid back down in bed. Pt and other managed BG during entire shift, 187, 125, and 110. NPO since 0500. Urinated x2 1200cc the first time and 1500cc the 2nd time. No N/V this shift, however, limited oral intake, primarily ice chips/sips of water. encouraged pt to increase oral intake, pt declined.
[2025-03-11 06:44] LABS: Hematocrit* 41.0 % (37.0-53.0); Hemoglobin* 13.9 gm/dL (13.5-17.5); Immature Granulocytes Abs Auto 0.01 K/uL (0.00-0.30); Immature Granulocytes Pct Auto 0.1 %; Lymphocytes Absolute Auto 2.73 K/uL (0.90-2.90); Mean Corpuscular HGB Conc 34 gm/dL (32-36); Mean Corpuscular Hemoglobin 29 pg (26-34); Mean Corpuscular Volume 86 fL (80-100); RDW Coefficient of Variation % 12.0 % (11.5-15.5); Red Blood Count* 4.77 m/uL (4.30-5.90); White Blood Count* 7.36 K/uL (4.50-11.00)
[2025-03-11 06:47] LABS: Slide Review Reflex No
[2025-03-11 07:05] LABS: Chloride* 94 mmol/L (96-114); Potassium* 3.5 mmol/L (3.6-5.1); Sodium* 137 mmol/L (135-149)
[2025-03-11 07:08] LABS: Anion Gap 9 mEq/L (7-15); Blood Urea Nitrogen* 5 mg/dL (5-24); Calcium* 9.3 mg/dL (8.4-10.6); Carbon Dioxide* 34 mmol/L (20-32); Creatinine* 0.7 mg/dL (0.5-1.5); Est. Creatinine Clearance* 146.83; Estimated Glomerular Filt Rate 133 ml/min; Glucose* 108 mg/dL (60-115)
[2025-03-11] MEDS: 5 % DEX/0.45 SOD CHL+KCL20 mEq 1,000 ML 75 ML IV (07:13)
[2025-03-11 07:41] VITALS: PULSE 96
[2025-03-11] MEDS: ONDANSETRON ODT 4 MG TAB PO (07:41)
[2025-03-11 07:46] VITALS: BP 149/110; PULSE 99; RESP 16; TEMP 36.8; O2SAT 96
[2025-03-11] MEDS: ASPIRIN 81 MG TAB.CHEW PO (09:24)
[2025-03-11] MEDS: PANTOPRAZOLE SODIUM 40 MG INJ IVP (09:24)
[2025-03-11] MEDS: SODIUM CHLORIDE 0.9 % (FLUSH) 10 ML SYRINGE 5 ML IVF (09:24)
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
[2025-03-11 11:27] VITALS: BP 146/101; PULSE 90; RESP 16; TEMP 36.8; O2SAT 95
--- NOTE | 2025-03-11 11:41 | PC.NURSE ---
Pt. transferred to [facility] in [place] at 1142 via [facility]. [id number] report given to Nurse Tia at [facility].
== END 2025-03-11 11:42 | disposition short-term general hospital (02) | DRG 420 ==
LOC: ED 13:06 → MEDSURG 14:15
PROVIDERS: Family Medicine; Admitting Provider Family Medicine; Emergency Provider Family Medicine; PCP Family Medicine; Visit Provider Family Medicine
DX: E10.10 Type 1 diabetes mellitus with ketoacidosis without coma (principal); N17.9 Acute kidney failure, unspecified; E86.0 Dehydration; E43 Unspecified severe protein-calorie malnutrition; M62.84 Sarcopenia; R00.0 Tachycardia, unspecified; E87.1 Hypo-osmolality and hyponatremia; E87.6 Hypokalemia; R33.9 Retention of urine, unspecified; F12.10 Cannabis abuse, uncomplicated; F14.10 Cocaine abuse, uncomplicated; Z96.41 Presence of insulin pump (external) (internal); Z79.4 Long term (current) use of insulin; K20.90 Esophagitis, unspecified without bleeding; J02.9 Acute pharyngitis, unspecified; R11.10 Vomiting, unspecified; Z68.1 Body mass index [BMI] 19.9 or less, adult; F32.A Depression, unspecified; F43.10 Post-traumatic stress disorder, unspecified; H91.90 Unspecified hearing loss, unspecified ear
CPT/HCPCS: 36415; 51798; 71045; 71275; 74177; 80048; 80053; 80076; 80306; 81001; 82077; 82803; 82947; 82962; 83605; 83690; 83735; 83880; 84100; 84132; 84145; 85025; 86140; 86308; 87040; 87086; 87338; 87631; 87651; 93005; 93306; 94761; 97161; 99285; A9270; J0780; J1630; J1650; J2185; J2405; J2470; J3475; J3480; J3590; J7030; J7050; J7120; Q9967

== ENCOUNTER 2025-03-11 11:36 | Outpatient (CLI) | payer BC, SELFPAY | END 2025-03-11 11:37 | disposition home or self-care (01) | LOC: AMB 03-15 02:34 | PROVIDERS: PCP Family Medicine; Visit Provider Family Medicine | DX: E11.10 Type 2 diabetes mellitus with ketoacidosis without coma (principal); R00.0 Tachycardia, unspecified; E43 Unspecified severe protein-calorie malnutrition | CPT/HCPCS: A0425; A0428 ==

== ENCOUNTER 2025-05-06 16:25 | Outpatient (CLI) | payer BC, SELFPAY | END 2025-05-06 16:26 | disposition home or self-care (01) | LOC: LKVREF 16:27 | PROVIDERS: PCP Family Medicine; Visit Provider Family Medicine | DX: R74.8 Abnormal levels of other serum enzymes (principal); Z01.818 Encounter for other preprocedural examination | CPT/HCPCS: 80053 ==

== ENCOUNTER 2025-05-11 15:01 | Outpatient (CLI) | payer BC, SELFPAY | END 2025-05-11 15:02 | disposition home or self-care (01) | PROVIDERS: PCP Family Medicine; Referring Provider Family Medicine; Visit Provider Family Medicine | DX: E10.65 Type 1 diabetes mellitus with hyperglycemia (principal) | CPT/HCPCS: 80048 ==